=== PATIENT | female | born 1980 | race Caucasian/White ===

== ENCOUNTER 2025-10-11 12:48 | Outpatient (CLI) | payer OTHER, SELFPAY ==
--- NOTE | 2025-10-11 13:00 | CRLHL7_ITS ---
For Patients: As a result of the Century Cures Act, medical imaging exams and procedure reports are released immediately into your electronic medical record. You may view this report before your referring provider. If you have questions, please contact your health care provider. Indication: Neck pain. Radiculopathy. Technique: MRI of the cervical spine was performed without the use of intravenous contrast. Comparison: Cervical spine MRI 05/18/2010. Findings: The vertebral body heights appear maintained without evidence of fracture. No discrete T1 hypointense marrow infiltrating process. Mild multilevel disc height loss and degeneration. Straightening of the cervical lordosis. Subtle cord signal abnormality at the C6-7 level. C2-3: No spinal canal or neural foraminal narrowing. C3-4: No spinal canal or neural foraminal narrowing. C4-5: No spinal canal or neural foraminal narrowing. C5-6: Disc osteophyte complex results in mild spinal canal narrowing. [id number] left and mild right neural foraminal narrowing secondary to uncovertebral joint and facet arthropathy. Progressed. C6-7: Disc osteophyte complex results in moderate to severe spinal canal narrowing, with mild cord flattening. [id number]-gb-[id number] neural foraminal narrowing secondary to uncovertebral joint and facet arthropathy. Progressed. C7-T1: No spinal canal or neural foraminal narrowing. Impression: 1. At C6-7, progressed moderate to severe spinal canal stenosis with mild cord flattening. There is associated abnormal cord signal suggestive of edema. 2. At C5-6, progressed mild spinal canal with mild to moderate left and mild right neural foraminal narrowing. Dictated by Chip Caballero MD @ 10/11/2025 3:22:46 PM (Electronically Signed)
--- NOTE | 2025-10-11 13:45 | CRLHL7_ITS ---
For Patients: As a result of the 21st Century Cures Act, medical imaging exams and procedure reports are released immediately into your electronic medical record. You may view this report before your referring provider. If you have questions, please contact your health care provider. CLINICAL INDICATION: Left neck pain radiating into the left arm. Left shoulder tendinitis. COMPARISON IMAGING STUDIES: None available at time of interpretation. TECHNICAL: Non-contrast MRI of the left shoulder. Axial, sagittal oblique and coronal oblique T1, PD, PD FS, T2 and T2 FS images. 1.5 [facility] MR scanner. FINDINGS: GLENOHUMERAL JOINT: Effusion/Joint Space: No effusion. No joint bodies. Humeral Head Articular Cartilage: Maintained. Glenoid Articular Cartilage: Maintained. Alignment: Maintained. Capsule: No capsular edema or abnormal capsular thickening. OSSEOUS STRUCTURES: Subcortical reactive cystic-like change involves the posterior humeral head-greater tuberosity junction. There is no acute fracture or avascular necrosis. There is bone marrow edema within the lateral clavicle. CORACOACROMIAL ARCH: Acromial Morphology: Acromial morphology is intermediate between type 1 and type 2. No abnormal lateral or anterior downward sloping of the acromion. No os acromiale. No significant subacromial spur. Lateral acromial thickness is 5 mm. Acromiohumeral Interval: At its narrowest, the interval measures 6 mm. Coracohumeral Interval: At its narrowest, the coracohumeral interval measures 16 mm. Coracoid index is 6 mm. 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 No AC joint widening or malalignment. Coracoclavicular ligament intact. BURSAE: No bursal fluid collection. ROTATOR CUFF TENDONS AND MUSCLES AND DELTOID: Supraspinatus and Infraspinatus: Mild distal supraspinatus tendinosis. No significant distal tendon tear. No muscle atrophy. Distal infraspinatus tendon is intact. No muscle atrophy. Teres Minor: No tendinosis, tendon tearing, muscle atrophy or muscle edema. Subscapularis: No tendinosis, tendon tearing, muscle atrophy or muscle edema. Deltoid: No muscle atrophy or edema. BICEPS TENDON, LONG HEAD: The long head of the biceps tendon is intact. No subluxation or dislocation of tendon from bicipital groove. GLENOID LABRUM: Degeneration of the superior to posterior superior labrum with suspected fraying. OTHER FINDINGS: There is no abnormality within the suprascapular or spinoglenoid notches nor within the quadrilateral space. No axillary adenopathy or mass. IMPRESSION: 1. Examination mildly limited by motion artifact. 2. Mild distal supraspinatus tendinosis. No significant distal tendon tear. 3. 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 4. 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 5. No bursitis. Dictated by Antony Paula MD @ 10/12/2025 12:17:03 PM (Electronically Signed)
== END 2025-10-11 12:49 | disposition home or self-care (01) ==
PROVIDERS: PCP Family Medicine; Visit Provider Family Medicine
DX: M75.102 Unspecified rotator cuff tear or rupture of left shoulder, not specified as traumatic (principal); M19.012 Primary osteoarthritis, left shoulder; M75.91 Shoulder lesion, unspecified, right shoulder
CPT/HCPCS: 72141; 73221